=== PATIENT | female | born 1995 | race American Indian/Alaskan Native ===

== ENCOUNTER 2017-04-27 09:58 | Emergency (ER) | payer SELFPAY ==
[2017-04-27 10:48] VITALS: BP 106/58
--- NOTE | 2017-04-27 11:43 | Emergency Department Report ---
ED Anxiety HPI - General Chief Complaint: Anxiety Stated Complaint: ANXIETY Time Seen by Provider: 04/27/17 11:37 Source: patient Mode of arrival: Ambulatory - History of Present Illness Initial Comments: 22-year-old -[place] female who works at the [employer] comes in today presenting with complaint of anxiety. Patient reports that she had a panic attack this morning while at work. She reports that she had shortness of breathing palpitations she couldn't calm herself down. She denies any homicidal or suicidal ideation. She currently takes no medications has no known drug allergies and has no past medical history she has no primary care provider. She reports this has happened to her one other time. Patient reports at this time she is not shortness of breath she does not have any palpitations. MD Complaint: anxiety, heart racing, shortness of breath - Related Data Home Medications: Previous Rx's Medication Instructions Recorded Last Taken Type Docusate Sodium [Colace] 100 mg PO BID #60 capsule 12/06/15 Unknown Rx Hydrocortisone [Anucort-HC SUPPOS] 25 mg RC BID #60 supp.rect 12/06/15 Unknown Rx PE/Shk Lvr/Mo/Pet,Wh [Preparation 28 gm [place] BID #1 tube 12/06/15 Unknown Rx H] Ibuprofen [Motrin 800 MG tab] 800 mg PO Q8HR PRN #30 tablet 04/09/16 Unknown Rx oxyCODONE /ACETAMINOPHEN [Percocet 1 tab PO Q4HR #30 tab 04/09/16 Unknown Rx 5/325] Docusate Sodium [Colace] 100 mg PO BID PRN #30 capsule 04/11/16 Unknown Rx Ferrous Sulfate [Feosol 325 MG tab] 325 mg PO TID #90 tablet 04/11/16 Unknown Rx Allergies/Adverse Reactions: Allergies Allergy/AdvReac Type Severity Reaction Status Date / Time No Known Allergies Allergy Verified 04/27/17 10:43 ED Review of Systems ROS: Stated complaint: ANXIETY Other details as noted in HPI Constitutional: denies: chills, fever Eyes: denies: eye pain, eye discharge, vision change ENT: denies: ear pain, throat pain Respiratory: shortness of breath Cardiovascular: palpitations Endocrine: no symptoms reported Gastrointestinal: denies: abdominal pain, nausea, diarrhea Genitourinary: denies: urgency, dysuria, discharge Musculoskeletal: denies: back pain, joint swelling, arthralgia Skin: denies: rash, lesions Neurological: denies: headache, weakness, paresthesias Psychiatric: anxiety. denies: auditory hallucinations, visual hallucinations, homicidal thoughts, suicidal thoughts Hematological/Lymphatic: denies: easy bleeding, easy bruising ED Past Medical Hx - Past Medical History Hx Hypertension: No Hx Congestive Heart Failure: No Hx Diabetes: No Hx Deep Vein Thrombosis: No Hx Renal Disease: No Hx Sickle Cell Disease: No Hx Seizures: No Hx Asthma: No Hx COPD: No Hx HIV: No - Surgical History Past Surgical History?: No - Social History Smoking Status: Never Smoker Substance Use Type: Alcohol - Medications Home Medications: Home Medications Medication Instructions Recorded Confirmed Last Taken Type Docusate Sodium [Colace] 100 mg PO BID #60 capsule 12/06/15 04/11/16 Unknown Rx Hydrocortisone [Anucort-HC SUPPOS] 25 mg RC BID #60 supp.rect 12/06/15 Unknown Rx PE/Shk Lvr/Mo/Pet,Wh [Preparation 28 gm [place] BID #1 tube 12/06/15 04/11/16 Unknown Rx H] Ibuprofen [Motrin 800 MG tab] 800 mg PO Q8HR PRN #30 tablet 04/09/16 Unknown Rx oxyCODONE /ACETAMINOPHEN [Percocet 1 tab PO Q4HR #30 tab 04/09/16 Unknown Rx 5/325] Docusate Sodium [Colace] 100 mg PO BID PRN #30 capsule 04/11/16 Unknown Rx Ferrous Sulfate [Feosol 325 MG tab] 325 mg PO TID #90 tablet 04/11/16 Unknown Rx ED Physical Exam - General Limitations: No Limitations, Other (patient is calm no acute distress sitting in the chair sleeping) General appearance: alert, in no apparent distress - Head Head exam: Present: atraumatic, normocephalic - Eye Eye exam: Present: normal appearance - ENT ENT exam: Present: mucous membranes moist - Neck Neck exam: Present: normal inspection - Respiratory Respiratory exam: Present: normal lung sounds bilaterally. Absent: respiratory distress - Cardiovascular Cardiovascular Exam: Present: regular rate, normal rhythm. Absent: systolic murmur, diastolic murmur, rubs, gallop - GI/Abdominal GI/Abdominal exam: Present: soft, normal bowel sounds - Extremities Exam Extremities exam: Present: normal inspection - Back Exam Back exam: Present: normal inspection - Neurological Exam Neurological exam: Present: alert, oriented X3 - Psychiatric Psychiatric exam: Present: normal affect, normal mood. Absent: depressed, agitated, anxious, suicidal ideation - Skin Skin exam: Present: warm, dry, intact, normal color. Absent: rash ED Course Vital Signs 04/27/17 10:43 Temperature 98.3 F Pulse Rate 74 Respiratory 16 Rate Blood Pressure 106/58 O2 Sat by Pulse 100 Oximetry ED Medical Decision Making - Medical Decision Making Patient has been evaluated by this provider fast track. Patient is not suicidal or homicidal. Patient is not anxious at this time. Patient heart rate is within normal limits at approximately 74 beats a minute. Patient has no signs of shortness of breath or dyspnea on exertion. I will refer patient to psychiatry outpatient as well as a primary care provider for further evaluation and workup. Patient verbalized understanding. Critical care attestation.: If time is entered above; I have spent that time in minutes in the direct care of this critically ill patient, excluding procedure time. ED Disposition Clinical Impression: Anxiety Disposition: DC-01 TO HOME OR SELFCARE Is pt being admited?: No Does the pt Need Aspirin: No Condition: Stable Instructions: Anxiety (ED) Additional Instructions: Please follow up with a psychiatrist for further evaluation and management. Referrals: PRIMARY CARE, [Primary Care Provider] - 3-5 Days CECILE HOGAN MD [Staff Physician] - 3-5 Days ALEM MACHADO MD [Referring] - 3-5 Days RAMILA LUNDBERG FNP [Advanced Practice Nurse] - 3-5 Days JOSE J ROMERO MD [Staff Physician] - 3-5 Days YINKA CHICAS MD [Referring] - 3-5 Days Forms: Work/School Release Form(ED)
== END 2017-04-27 11:47 | disposition home or self-care (01) ==
LOC: ED 09:58
DX: F41.9 Anxiety disorder, unspecified (principal)
CPT/HCPCS: 99282

== ENCOUNTER 2018-03-23 18:24 | Emergency (ER) | payer SELFPAY ==
[2018-03-23 18:33] VITALS: BP 102/44
--- NOTE | 2018-03-23 21:01 | Emergency Department Report ---
ED General Adult HPI - General Chief complaint: Nausea/Vomiting/Diarrhea Stated complaint: CANT KEEP FOOD DOWN Time Seen by Provider: 03/23/18 20:56 Source: patient Mode of arrival: Ambulatory Limitations: No Limitations - History of Present Illness Initial comments: 23-year-old comes in complaining of nausea and vomiting with constipation since 118. Patient reports that last emesis about 1500. Her last BM may have been Wednesday. She complains of intermittent abdominal pain but no abdominal pain at this moment. Patient has no nausea at this moment. Patient does admit to smoking weed last used on Wednesday. She's been able to drink. She complains of epigastric pain worse with eating tomatoes or pizza better with fresh air. Patient denies any urinary symptoms she reports her last menstrual period was 5 months ago she reports irregular menses. Patient is 1 para 1. Patient sometimes reports she has reflux with eating the tomato sauce pizza. Patient has any fever or chills at this time. She denies any nausea at this time. Patient reports past medical history anxiety. Currently takes no medications on a daily basis and has no known drug allergies. -: days(s) (5 days) Location: abdomen (epigastric intermittent) Quality: aching Consistency: intermittent Improves with: other (fresh air) Worsens with: eating (pizza and tomato sauce) Associated Symptoms: nausea/vomiting. denies: chest pain, fever/chills, loss of appetite Treatments Prior to Arrival: none - Related Data Previous Rx's Medication Instructions Recorded Last Taken Type Docusate Sodium [Colace] 100 mg PO BID #60 capsule 12/06/15 Unknown Rx Hydrocortisone [Anucort-HC SUPPOS] 25 mg RC BID #60 supp.rect 12/06/15 Unknown Rx PE/Shk Lvr/Mo/Pet,Wh [Preparation 28 gm [place] BID #1 tube 12/06/15 Unknown Rx H] Ibuprofen [Motrin 800 MG tab] 800 mg PO Q8HR PRN #30 tablet 04/09/16 Unknown Rx oxyCODONE /ACETAMINOPHEN [Percocet 1 tab PO Q4HR #30 tab 04/09/16 Unknown Rx 5/325] Docusate Sodium [Colace] 100 mg PO BID PRN #30 capsule 04/11/16 Unknown Rx Ferrous Sulfate [Feosol 325 MG tab] 325 mg PO TID #90 tablet 04/11/16 Unknown Rx Vits96/Iron Fum/Folic 1 each PO QDAY #90 tablet 03/24/18 Unknown Rx [ Tablet] Allergies Allergy/AdvReac Type Severity Reaction Status Date / Time No Known Allergies Allergy Verified 03/23/18 18:31 ED Review of Systems ROS: Stated complaint: CANT KEEP FOOD DOWN Other details as noted in HPI Comment: All other systems reviewed and negative Constitutional: denies: chills, fever Gastrointestinal: abdominal pain, nausea Genitourinary: denies: urgency, dysuria, discharge ED Past Medical Hx - Past Medical History Previous Medical History?: No Hx Hypertension: No Hx Congestive Heart Failure: No Hx Diabetes: No Hx Deep Vein Thrombosis: No Hx Renal Disease: No Hx Sickle Cell Disease: No Hx Seizures: No Hx Asthma: No Hx COPD: No Hx HIV: No - Surgical History Past Surgical History?: No - Social History Smoking Status: Current Every Day Smoker Substance Use Type: None - Medications Home Medications: Home Medications Medication Instructions Recorded Confirmed Last Taken Type Docusate Sodium [Colace] 100 mg PO BID #60 capsule 12/06/15 04/11/16 Unknown Rx Hydrocortisone [Anucort-HC SUPPOS] 25 mg RC BID #60 supp.rect 12/06/15 Unknown Rx PE/Shk Lvr/Mo/Pet,Wh [Preparation 28 gm [place] BID #1 tube 12/06/15 04/11/16 Unknown Rx H] Ibuprofen [Motrin 800 MG tab] 800 mg PO Q8HR PRN #30 tablet 04/09/16 Unknown Rx oxyCODONE /ACETAMINOPHEN [Percocet 1 tab PO Q4HR #30 tab 04/09/16 Unknown Rx 5/325] Docusate Sodium [Colace] 100 mg PO BID PRN #30 capsule 04/11/16 Unknown Rx Ferrous Sulfate [Feosol 325 MG tab] 325 mg PO TID #90 tablet 04/11/16 Unknown Rx Vits96/Iron Fum/Folic 1 each PO QDAY #90 tablet 03/24/18 Unknown Rx [ Tablet] ED Physical Exam - General Limitations: No Limitations General appearance: alert, in no apparent distress - Head Head exam: Present: atraumatic, normocephalic - Eye Eye exam: Present: normal appearance - ENT ENT exam: Present: mucous membranes moist, TM's normal bilaterally - Neck Neck exam: Present: normal inspection, full ROM - Respiratory Respiratory exam: Present: normal lung sounds bilaterally. Absent: respiratory distress - Cardiovascular Cardiovascular Exam: Present: regular rate, normal rhythm. Absent: systolic murmur, diastolic murmur, rubs, gallop - GI/Abdominal GI/Abdominal exam: Present: soft, normal bowel sounds. Absent: distended, tenderness, guarding, rebound - Extremities Exam Extremities exam: Present: normal inspection, full ROM - Back Exam Back exam: Present: normal inspection - Neurological Exam Neurological exam: Present: alert, oriented X3 - Psychiatric Psychiatric exam: Present: normal affect, normal mood - Skin Skin exam: Present: warm, dry, intact, normal color. Absent: rash ED Course Vital Signs 03/23/18 18:31 Temperature 98.4 F Pulse Rate 76 Respiratory 18 Rate Blood Pressure 102/44 O2 Sat by Pulse 98 Oximetry ED Medical Decision Making - Radiology Data Radiology results: report reviewed FINAL REPORT PROCEDURE: US OB transvaginal TECHNIQUE: Real-time transvaginal sonography of the uterus, placenta, amniotic fluid, adnexa, and fetus was performed with image documentation. Measurements were obtained to determine age/size. M-mode Doppler was used to document heartbeat. HISTORY: abd pain with +hcg urine COMPARISON: No prior studies are available for comparison. FINDINGS: CRL: 6.4 mm, which corresponds to a gestational age of: 6 weeks, 3 days. Yolk Sac: Normal. Embryonic Cardiac Activity: 120 beats per minute Gestational Sac: Normal. Amniotic fluid: Normal. Cervix: Normal. Right Ovary: Normal. Left Ovary: There is a complex cyst measuring 17 millimeters. Estimated delivery date: 11/14/2018 Uterus and adnexa: Normal. IMPRESSION: Single live intrauterine gestation at approximately 6 weeks and 3 days. EDC by US 11/14/2018 Transcribed By: CO Dictated By: BALTAZAR FARR MD Electronically Authenticated By: BALTAZAR FARR MD Signed Date/Time: 03/24/18310 DD/ 3 TD/TT: 03/24/18313 - Medical Decision Making Patient has been evaluated by this provider in fast track. Waiting for urinalysis and urine test to be sent off. Patient currently has no abdominal pain no nausea no vomiting. Did discuss the patient that marijuana use can cause nausea vomiting abdominal pains. Critical care attestation.: If time is entered above; I have spent that time in minutes in the direct care of this critically ill patient, excluding procedure time. ED Disposition Clinical Impression: Qualifiers: Weeks of gestation: less than 8 weeks Qualified Code(s): Z3A.01 - Less than 8 weeks gestation of Disposition: DC- TO HOME OR SELFCARE Is pt being admited?: No Does the pt Need Aspirin: No Condition: Stable Instructions: Morning Sickness (ED), (ED) Additional Instructions: Please take vitamins every day. Please follow-up with an OB I have listed several below for your convenience. Prescriptions: Vits96/Iron Fum/Folic [ Tablet] 1 each PO QDAY #90 tablet Referrals: MELVI BELLE MD [Primary Care Provider] - 3-5 Days [facility] [Provider Group] - 3-5 Days [facility] [Provider Group] - 3-5 Days [facility] [Provider Group] - 3-5 Days
[2018-03-23 21:29] LABS: HCG Qualitative,Urine Positive (Negative)
[2018-03-23 21:33] LABS: Bacteria,Urine 1+ /HPF (Negative); Bilirubin,Urine NEG (Negative); Blood,Urine SM (Negative); Color,Urine Yellow (Yellow); Mucus,Urine FEW /HPF; Protein,Urine <15 mg/dL mg/dL (Negative)
--- NOTE | 2018-03-24 03:11 | Ultrasound Report ---
FINAL REPORT PROCEDURE: US OB transvaginal TECHNIQUE: Real-time transvaginal sonography of the uterus, placenta, amniotic fluid, adnexa, and fe tus was performed with image documentation. Measurements were obtained to determine age/size. M -mode Doppler was used to document heartbeat. HISTORY: abd pain with +hcg urine COMPARISON: No prior studies are available for comparison. FINDINGS: CRL: 6.4 mm, which corresponds to a gestational age of: 6 weeks, 3 days. Yolk Sac: Normal. Embryonic Cardiac Activity: 120 beats per minute Gestational Sac: Normal. Amniotic fluid: Normal. Cervix: Normal. Right Ovary: Normal. Left Ovary: There is a complex cyst measuring 17 millimeters. Estimated delivery date: 11/14/2018 Uterus and adnexa: Normal. IMPRESSION: Single live intrauterine gestation at approximately 6 weeks and 3 days. EDC by US 11/14/2018
--- NOTE | 2018-03-24 03:11 | Ultrasound Report ---
FINAL REPORT PROCEDURE: US OB <= 14 WEEKS FETUS TECHNIQUE: Real-time transabdominal sonography of the uterus, placenta, amniotic fluid, adnexa, and fetus was performed with image documentation. Measurements were obtained to determine age/size. M-mode Doppler was used to document heartbeat. CPT 68147 HISTORY: abd pain with +hcg urine COMPARISON: No prior studies are available for comparison. FINDINGS: CRL: 6.4 mm, which corresponds to a gestational age of: 6 weeks, 3 days. Yolk Sac: Normal. Embryonic Cardiac Activity: 120 beats per minute Gestational Sac: Normal. Amniotic fluid: Normal. Cervix: Normal. Right Ovary: Normal. Left Ovary: There is a complex cyst measuring 17 millimeters. Estimated delivery date: 11/14/2018 Uterus and adnexa: Normal. IMPRESSION: Single live intrauterine gestation at approximately 6 weeks and 3 days. EDC by US 11/14/2018
== END 2018-03-24 03:33 | disposition home or self-care (01) ==
LOC: ED 18:24
DX: O21.8 Other vomiting complicating pregnancy (principal); O26.891 Other specified pregnancy related conditions, first trimester; R10.13 Epigastric pain; O99.331 Smoking (tobacco) complicating pregnancy, first trimester; F17.200 Nicotine dependence, unspecified, uncomplicated; Z3A.01 Less than 8 weeks gestation of pregnancy
CPT/HCPCS: 36415; 76801; 76817; 81001; 81025; 84702; 84703

== ENCOUNTER 2018-06-09 19:51 | Emergency (ER) | payer MEDICAID, OTHER ==
[2018-06-09 20:01] VITALS: BP 123/82
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
[2018-06-09] MEDS ORDERED: TYLENOL PO ONE (21:22)
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
== END 2018-06-09 23:38 | disposition home or self-care (01) ==
LOC: ED 19:51
DX: O9A.212 Injury, poisoning and certain other consequences of external causes complicating pregnancy, second trimester (principal); S69.92XA Unspecified injury of left wrist, hand and finger(s), initial encounter; O99.332 Smoking (tobacco) complicating pregnancy, second trimester; F17.200 Nicotine dependence, unspecified, uncomplicated; Z3A.18 18 weeks gestation of pregnancy; Y04.0XXA Assault by unarmed brawl or fight, initial encounter; Y93.89 Activity, other specified; Y92.89 Other specified places as the place of occurrence of the external cause; Y99.8 Other external cause status

== ENCOUNTER 2018-09-24 23:21 | Outpatient (CLI) | payer MEDICAID ==
[2018-09-24] MEDS ORDERED: LACTATED RINGERS 500 ML IV ONE (23:34)
[2018-09-24] MEDS ORDERED: LACTATED RINGERS 1,000 ML ONE (23:49)
[2018-09-25 00:29] VITALS: BP 104/65
[2018-09-25] MEDS ORDERED: ZOFRAN IV ONE (00:54)
[2018-09-25 02:15] LABS: Bacteria,Urine 1+ /HPF (Negative); Bilirubin,Urine NEG (Negative); Blood,Urine NEG (Negative); Color,Urine Amber (Yellow); Mucus,Urine 3+ /HPF
[2018-09-25] MEDS ORDERED: BRETHINE ONE (03:26)
[2018-09-25] MEDS ORDERED: BRETHINE SUB-Q ONE (03:30)
== END 2018-09-25 04:41 | disposition home or self-care (01) ==
LOC: TRG 23:21
PROVIDERS: ATTEND Obstetrics & Gynecology
DX: O21.2 Late vomiting of pregnancy (principal); O26.893 Other specified pregnancy related conditions, third trimester; R19.7 Diarrhea, unspecified; O47.03 False labor before 37 completed weeks of gestation, third trimester; O99.343 Other mental disorders complicating pregnancy, third trimester; F41.8 Other specified anxiety disorders; Z87.891 Personal history of nicotine dependence; Z3A.32 32 weeks gestation of pregnancy
CPT/HCPCS: 59025; 81001; 96365; 96372; J2405; J3105; J7120; 96360; 96361; 96374; 96376

== ENCOUNTER 2018-10-16 19:37 | Outpatient (CLI) | payer MEDICAID ==
[2018-10-16] MEDS ORDERED: LACTATED RINGERS 1,000 ML IV ONE (23:27)
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
== END 2018-10-17 01:30 | disposition home or self-care (01) ==
LOC: TRG 19:37 → LD 19:38 → TRG 10-17 01:30
PROVIDERS: ATTEND Obstetrics & Gynecology
DX: O36.8130 Decreased fetal movements, third trimester, not applicable or unspecified (principal); O47.03 False labor before 37 completed weeks of gestation, third trimester; O99.343 Other mental disorders complicating pregnancy, third trimester; F41.8 Other specified anxiety disorders; O99.323 Drug use complicating pregnancy, third trimester; F12.90 Cannabis use, unspecified, uncomplicated; Z87.891 Personal history of nicotine dependence; Z3A.36 36 weeks gestation of pregnancy
CPT/HCPCS: 76815; 96360; J7120

== ENCOUNTER 2018-10-25 21:54 | Outpatient (CLI) | payer MEDICAID ==
[2018-10-25] MEDS ORDERED: LACTATED RINGERS 1,000 ML IV ONE (22:40)
[2018-10-25 22:59] LABS: Bilirubin,Urine NEG (Negative); Blood,Urine NEG (Negative); Color,Urine Yellow (Yellow); Mucus,Urine 1+ /HPF
[2018-10-25 23:04] LABS: Amphetamine Screen,Urine PRESUMPTIVE NEGATIVE; Benzodiazepines Screen,Urine PRESUMPTIVE NEGATIVE; Cocaine Screen,Urine PRESUMPTIVE NEGATIVE; Methadone Screen,Urine PRESUMPTIVE NEGATIVE; Opiate Screen,Urine PRESUMPTIVE NEGATIVE
[2018-10-25] MEDS ORDERED: ZOFRAN IV ONE (23:15)
[2018-10-25 23:18] LABS: Cannabinoid Screen,Urine PRESUMPTIVE POSITIVE
[2018-10-25 23:36] VITALS: BP 106/60
== END 2018-10-25 23:40 | disposition home or self-care (01) ==
LOC: TRG 21:54
PROVIDERS: ATTEND Obstetrics & Gynecology
DX: O21.2 Late vomiting of pregnancy (principal); O26.893 Other specified pregnancy related conditions, third trimester; R19.7 Diarrhea, unspecified; R25.2 Cramp and spasm; O99.613 Diseases of the digestive system complicating pregnancy, third trimester; K59.00 Constipation, unspecified; O99.343 Other mental disorders complicating pregnancy, third trimester; F41.8 Other specified anxiety disorders; O99.323 Drug use complicating pregnancy, third trimester; F12.90 Cannabis use, unspecified, uncomplicated; Z3A.37 37 weeks gestation of pregnancy
CPT/HCPCS: 59025; 80307; 81001; 96361; 96374; J2405; J7120; 96360

== ENCOUNTER 2018-11-06 16:06 | Outpatient (CLI) | payer MEDICAID ==
[2018-11-06 17:34] VITALS: BP 99/58
== END 2018-11-06 17:58 | disposition home or self-care (01) ==
LOC: TRG 16:06
PROVIDERS: ATTEND Obstetrics & Gynecology
DX: O26.893 Other specified pregnancy related conditions, third trimester (principal); R42 Dizziness and giddiness; R06.02 Shortness of breath; R53.1 Weakness; O99.323 Drug use complicating pregnancy, third trimester; F12.10 Cannabis abuse, uncomplicated; Z3A.39 39 weeks gestation of pregnancy; Z87.891 Personal history of nicotine dependence

== ENCOUNTER 2018-11-09 11:30 | Inpatient (IN) | payer MEDICAID ==
--- NOTE | 2018-11-07 11:12 | History and Physical Report ---
History of Present Illness Date of examination: 11/04/18 Date of admission: 11/09/18 Chief complaint: here for repeat c/s. History of present illness: Pt presents for repeat c/s. All risk, benefits, and alternatives were d/w pt and questions were addressed and answered. Consents were signed and placed on the chart. 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 of genital herpes: yes Partner hx. of genital herpes: no Rash, Viral, or Febrile illness since last LMP? no Varicella/Chicken Pox Status: Immunized Infection History Comments: possible HSV? Genetic History Congenital Heart Defect: Mom: no Dad: no Omari Disease: Mom: no Dad: no Thalassemia Mom: no Dad: no Neural Tube Defect Mom: no Dad: no Down's Syndrome Mom: no Dad: no Ayo-Sachs Mom: no Dad: no Sickle Cell Disease/Trait Mom: no Dad: no Hemophilia Mom: no Dad: no Muscular Dystrophy Mom: no Dad: no Cystic Fibrosis Mom: no Dad: no [place] Chorea Mom: no Dad: no Mental Retardation Mom: no Dad: no Fragile X Mom: no Dad: no Other Genetic/Chromosomal Disorder Mom: no Dad: no Child w/other defect Mom: no Dad: no Enviromental Exposures Xray Exposure: no Medication, drug, or alcohol use since LMP: no Chemical/Other Exposure: no Exposure to Cat Liter: no Hx of Parvovirus (Fifth Disease): no Occupational Exposure to Children: none Active Medications (reviewed today): PERCOCET 5-325 MG ORAL TABLET (OXYCODONE-ACETAMINOPHEN) IBUPROFEN 800 MG ORAL TABLET (IBUPROFEN) 1 po q8h prn pain FERROUS SULFATE 325 (65 Fe) MG ORAL TABLET (FERROUS SULFATE) 1 po qd VITAMINS () Current Allergies (reviewed today): No known allergies Past History Past Medical History: no pertinent history 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 Negative: distention, tenderness, guarding Genitourinary (Female): Positive: other (deferred) Extremities: Positive: normal. Negative: tenderness, edema Deep Tendon Reflex Grade: Normal +2 Results All other labs normal. Assessment and Plan - Patient Problems (1) 39 weeks gestation of Status: Acute (2) Anemia affecting in third trimester Status: Acute (3) Previous delivery affecting , antepartum Status: Acute Plan to address problem: -admit and prepare for c/s -Consents signed and placed on the chart. All risk, benefits and alternatives were d/w pt and questions were addressed and answered.
[2018-11-11] MEDS ORDERED: LACTATED RINGERS 2,000 ML ONE (07:00)
[2018-11-11] MEDS ORDERED: LACTATED RINGERS 1,000 ML ONE (07:11)
[2018-11-11] MEDS ORDERED: BICITRA ONE (07:11)
[2018-11-11] MEDS ORDERED: REGLAN ONE (07:11)
[2018-11-11] MEDS ORDERED: PEPCID IV ONE (07:11)
[2018-11-11] MEDS ORDERED: DILAUDID IV PRN ×2 (07:28)
[2018-11-11] MEDS ORDERED: ZOFRAN IV PRN (07:28)
[2018-11-11] MEDS ORDERED: BENADRYL IV PRN (07:28)
--- NOTE | 2018-11-11 07:32 | Anesthesia Day of Surgery ---
Anesthesia Day of Surgery - Day of Surgery Patient Examined: Yes Patient H&P Reviewed: Yes Patient is NPO: Yes Beta Blockers: No Cardiac Clearance: No Pulmonary Clearance: No Colten's Test: N/A
--- NOTE | 2018-11-11 07:32 | Anesthesia Consultation ---
Anesthesia Consult and Med Hx Date of service: 11/11/18 - Airway Anesthetic Teeth Evaluation: Good ROM Head & Neck: Adequate Mental/Hyoid Distance: Adequate Mallampati Class: Class II Intubation Access Assessment: Probably Good - Pulmonary Exam CTA: Yes - Cardiac Exam Cardiac Exam: RRR - Pre-Operative Health Status ASA Pre-Surgery Classification: ASA2 Proposed Anesthetic Plan: Spinal - Pulmonary Hx Smoking: Yes (Cannabis stop 3month ago) Hx Asthma: No Hx Respiratory Symptoms: No SOB: No COPD: No Home Oxygen Therapy: No Hx Pneumonia: No Hx Sleep Apnea: No - Cardiovascular System Hx Hypertension: No Hx Coronary Artery Disease: No Hx Heart Attack/AMI: No Hx Angina: No Hx Percutaneous Transluminal Coronary Angioplasty (PTCA): No Hx Cardia Arrhythmia: No Hx Pacemaker: No Hx Internal Defibrillator: No Hx Valvular Heart Disease: No Hx Heart Murmur: No Hx Peripheral Vascular Disease: No - Central Nervous System Hx Neuromuscular Disorder: No Hx Seizures: No CVA: No Hx Back Pain: No Hx Psychiatric Problems: No - Gastrointestinal Hx Ulcer: No Hx Gastroesophageal Reflux Disease: No - Endocrine Hx Renal Disease: No Hx End Stage Renal Disease: No Hx Cirrhosis: No Hx Liver Disease: No Hx Insulin Dependent Diabetes: No Hx Non-Insulin Dependent Diabetes: No Hx Thyroid Disease: No Hx Hypothyroidism: No Hx Hyperthyroidism: No - Hematic Hx Anemia: Yes Hx Sickle Cell Disease: No - Other Systems Hx Alcohol Use: No Hx Substance Use: No Hx Cancer: No Hx Obesity: No
[2018-11-11] MEDS ORDERED: PEPCID IV NR (08:00)
[2018-11-11] MEDS ORDERED: SODIUM CHLORIDE FLUSH SYRINGE 10 ML IV NR (08:00)
[2018-11-11] MEDS ORDERED: LACTATED RINGERS 1,000 ML IV SCH (08:00)
[2018-11-11] MEDS ORDERED: ANCEF/STERILE WATER 2 GM/20 ML 2 GM/20 ML SYRINGE IV NR (08:00)
[2018-11-11] MEDS ORDERED: REGLAN IV NR (08:00)
[2018-11-11] MEDS ORDERED: BICITRA PO NR (08:00)
[2018-11-11] MEDS ORDERED: PITOCin/NS 20 UNIT/1000ML DRIP 20 UNITS/1,000 ML BAG IV SCH (08:00)
[2018-11-11 08:18] LABS: Basophils % (Auto) 0.5 % (0.0-1.8); Eosinophils # (Auto) 0.1 K/mm3 (0.0-0.4); Eosinophils % (Auto) 1.5 % (0.0-4.3); Hemoglobin 10.6 gm/dl (10.1-14.3); Lymphocytes # (Auto) 2.6 K/mm3 (1.2-5.4); Lymphocytes % (Auto) 27.5 % (13.4-35.0); Mean Corpuscular HGB Conc 34 % (30-34); Mean Corpuscular Volume 87 fl (79-97); Monocytes # (Auto) 0.8 K/mm3 (0.0-0.8); Monocytes % (Auto) 8.8 % (0.0-7.3); Platelet Count 266 K/mm3 (140-440); Red Blood Count 3.56 M/mm3 (3.65-5.03); Red Cell Distribution Width 14.3 % (13.2-15.2)
[2018-11-11] MEDS ORDERED: DEXMEDETOMIDINE IV ONE (09:24)
[2018-11-11] MEDS ORDERED: TORADOL ONE (09:24)
[2018-11-11] MEDS ORDERED: ZOFRAN ONE (09:24)
[2018-11-11] MEDS ORDERED: NACL 0.9% IR ONE ×2 (09:40)
[2018-11-11] MEDS ORDERED: WATER FOR IRRIG STERILE IR ONE (09:40)
--- NOTE | 2018-11-11 09:51 | Operative Report ---
Operative Report Operative Report: Date of procedure: 11/11/2018 Pre-operative diagnosis: Repeat section 39 weeks gestation Post-operative diagnosis: Same Procedure name(s): Repeat low transverse section via Pfannenstiel skin incision Vacuum assisted delivery Surgeon: Dr. Aparicio Clinical Documentation Specialist: ROXANA, Ms. Michaela Knox Anesthesia: Combined spinal epidural EBL: 800 mL Urine output: 200 mL of clear urine out at end of procedure Fluids: 1 L Findings: Liveborn female weight 6 lbs. 10 oz. Apgars of 8 and 9 at one and 5 minutes Grossly normal fallopian tubes and ovaries bilaterally Indications: She presents for scheduled section. All risks benefits and alternatives were discussed with the patient. Consents were signed and placed on the chart. Procedure: Patient was taking to the operating room. Patient was then prepped and draped in sterile fashion after anesthesia was found to be adequate. A low transverse skin incision was made with the scalpel through previous incisional scar and carried down to the underlying layer of fascia with the Bovie. The fascia was then incised in the midline and this incision was extended bilaterally with the Bovie. The superior aspect of the fascia was grasped with [place] clamps tented upward and dissected off of the anterior rectus muscles with the scalpel. In similar fashion the inferior aspect of the fascia was grasped with [place] clamps tented upward and dissected off of the anterior rectus muscles. The rectus muscles were then bluntly divided in the midline. The peritoneum was identified and entered into sharply. The bladder blade was placed. A lower transverse uterine incision was made with the scalpel and extended bilaterally with the dissection. Artificial rupture of membranes was performed yielding clear amniotic fluid. Kiwi vacuum was applied after appropriate positioning confirming no placement over the anterior fontanelle and with 1 pull the infant's head was then delivered atraumatically. The anterior shoulder and rest of delivered without difficulty. The umbilical cord was clamped x2. The cord was cut. The was then placed in sterile bassinet. The cord blood was collected. The placenta was manually extracted in its entirety. The uterus was exteriorized and cleared of all clots and debris. The uterine incision was closed using 0 Vicryl in a running locking fashion. A second imbricating layer of the same suture was then created. The posterior cul-de-sac was copiously irrigated. The uterus was returned to the abdomen. The gutters were also irrigated. The anterior rectus muscles were reapproximated using 3-0 Vicryl. The anterior rectus fascia was reapproximated using 0 Vicryl in a running fashion. The subcuticular fat was reapproximated using 2-0 Vicryl in a running fashion. The skin was reapproximated with 4-0 Monocryl in a subcuticular stitch. The patient tolerated the procedure well. Sponge lap and needle counts were all correct x3. Patient was taken to the recovery room awake and in stable condition.
--- NOTE | 2018-11-11 10:10 | Post Anesthesia Evaluation ---
- Post Anesthesia Evaluation Patient Participated: Yes Airway Patent: Yes Stable Respiratory Function: Yes Nausea/Vomiting: No Temp > 96.8F: Yes Pain Manageable: Yes Adequeate Hydration: Yes Anesthesia Complications: No Block Receding Appropriately: Yes Patient on Ventilator: No
[2018-11-11] MEDS ORDERED: NARCAN 0.4 MG/1 ML IV PRN (11:30)
[2018-11-11] MEDS ORDERED: TUCKS PAD TP PRN (11:30)
[2018-11-11] MEDS ORDERED: LANSINOH TP PRN (11:30)
[2018-11-11] MEDS ORDERED: ANCEF/STERILE WATER 2 GM/20 ML 2 GM/20 ML SYRINGE IV ONE (11:38)
[2018-11-11] MEDS: TORADOL IV PRN ×2 (13:44→21:43)
[2018-11-11] MEDS: ANCEF/NS 1 GM/50 ML 1 GM/50 ML BAG IV SCH (17:25)
[2018-11-11] MEDS: NORCO 5/325 PO PRN (20:33)
[2018-11-11] MEDS ORDERED: D5LR 1,000 ML IV SCH (21:00)
[2018-11-11 21:55] LABS: Hematocrit 26.9 % (30.3-42.9); Hemoglobin 9.1 gm/dl (10.1-14.3)
[2018-11-12] MEDS: ANCEF/NS 1 GM/50 ML 1 GM/50 ML BAG IV SCH (01:04)
[2018-11-12] MEDS: NORCO 5/325 PO PRN ×2 (04:46→15:31)
[2018-11-12] MEDS: TORADOL IV PRN (04:47)
[2018-11-12] MEDS ORDERED: BOOSTRIX IM ONE (06:00)
--- NOTE | 2018-11-12 10:21 | Progress Note ---
Assessment and Plan day 1 post repeat c/s, with good latch. no complaints. VSSAF, H&H 9.1/26.9. incision D&I. - Patient Problems (1) delivery delivered Current Visit: No Status: Acute Plan to address problem: Continue postop pathway Advance activity as tolerated possible d/c home tomorrow if patient desires (2) Anemia due to acute blood loss Current Visit: No Status: Acute Plan to address problem: continue PNV and healthy diet monitor for s/s anemia Subjective - Subjective Date of service: 11/12/18 Principal diagnosis: Postop day #1 s/p repeat c/s Patient reports: appetite normal, voiding normally, pain well controlled, flatus, no dizzy ambulation, no nauseated [place]: doing well, nursing well Objective - Vital Signs Latest vital signs: Vital Signs Temp Pulse Resp BP BP Pulse Ox 11/12/18 08:36 98.1 F 18 96/64 11/12/18 08:00 98.1 F 72 18 130/83 11/12/18 05:46 18 11/12/18 05:17 18 11/12/18 05:13 98.3 F 60 22 123/77 100 11/12/18 04:47 18 11/12/18 04:46 18 11/12/18 01:30 98.3 F 58 L 22 99 11/12/18 00:18 96/63 11/11/18 22:13 18 11/11/18 21:43 18 11/11/18 21:33 18 11/11/18 21:00 98.9 F 22 103/68 11/11/18 20:33 18 11/11/18 17:01 97.9 F 59 L 18 97/58 100 11/11/18 11:30 97.5 F L 57 L 18 97/61 98 11/11/18 11:00 60 12 90/50 100 11/11/18 10:55 58 L 12 90/54 100 11/11/18 10:40 60 12 86/44 98 11/11/18 10:25 64 12 87/46 98 Intake and Output 11/11/18 11/12/18 11/12/18 23:59 07:59 15:59 Intake Total 50 Output Total 400 800 Balance -350 -800 Intake: IV 50 ANCEF/NS 1 GM/50 ML 1 gm 50 In 50 ml @ 100 mls/hr IV Q8H [facility] Rx#:[id number] Output: Urine 400 800 Indwelling Catheter 400 800 Other: Total, Output Amount 400 800 # Voids Indwelling Catheter 900 - Exam Breasts: Present: normal, Cardiovascular: Present: Regular rate Lungs: Present: Clear to auscultation, Normal air movement Abdomen: Present: normal appearance, soft. Absent: distention, tenderness Vulva: both: normal Uterus: Present: normal, firm, fundal height at umbilicus Extremities: Present: normal Deep Tendon Reflex Grade: Normal +2 Incision: Present: normal, dry, intact - Labs Labs: Abnormal lab results 11/11/18 Range/Units 21:36 Hgb 9.1 L (10.1-14.3) gm/dl Hct 26.9 L (30.3-42.9) %
[2018-11-12] MEDS: FEOSOL PO SCH (12:42)
[2018-11-12] MEDS: IBUPROFEN PO PRN ×2 (12:43→20:42)
[2018-11-12] MEDS ORDERED: MILK OF MAGNESIA PO PRN (20:38)
[2018-11-13] MEDS ORDERED: BOOSTRIX IM ONE (06:00)
[2018-11-13] MEDS: NORCO 5/325 PO PRN ×3 (06:05→21:04)
[2018-11-13] MEDS: IBUPROFEN PO PRN ×3 (06:06→18:18)
[2018-11-13] MEDS: FEOSOL PO SCH (10:59)
--- NOTE | 2018-11-13 11:35 | Progress Note ---
Assessment and Plan post op day # 2 s/p repeat c/s, no complaints. requests d/c home tomorrow. VSSAF, no s/s anemia, baby with good latch. - Patient Problems (1) delivery delivered Current Visit: No Status: Acute Plan to address problem: Continue postop pathway Advance activity as tolerated d/c home tomorrow (2) Anemia due to acute blood loss Current Visit: No Status: Acute Plan to address problem: continue PNV and healthy diet monitor for s/s anemia Subjective - Subjective Date of service: 11/13/18 Principal diagnosis: Postop day #2 s/p repeat c/s Patient reports: appetite normal, voiding normally, pain well controlled, flatus, ambulating normally, no dizzy ambulation, no nauseated : doing well, nursing well Objective - Vital Signs Latest vital signs: Vital Signs Temp Pulse Resp BP Pulse Ox 11/13/18 08:09 98.7 F 18 93/42 11/13/18 07:06 18 11/13/18 07:05 18 11/13/18 06:06 18 11/13/18 06:05 18 11/13/18 01:09 98.2 F 66 18 99/62 99 11/12/18 21:42 18 11/12/18 20:42 18 11/12/18 16:54 97.8 F 65 18 105/70 100 Intake and Output 11/12/18 11/13/18 11/13/18 23:59 07:59 15:59 Intake Total 540 480 Balance 540 480 Intake: Oral 380 Intake, Free Water 160 480 Other: Total, Intake Amount 380 # Voids Indwelling Catheter 2 Void 4 # Bowel Movements 0 - Exam Breasts: Present: normal, Cardiovascular: Present: Regular rate Lungs: Present: Clear to auscultation, Normal air movement Abdomen: Present: normal appearance, soft, normal bowel sounds. Absent: distention, tenderness Vulva: both: normal Uterus: Present: normal, firm, fundal height at umbilicus Extremities: Present: normal Incision: Present: normal, dry, intact
[2018-11-14] MEDS: IBUPROFEN PO PRN (05:26)
--- NOTE | 2018-11-14 08:33 | Discharge Summary ---
Providers - Providers Date of Admission: 11/11/18 06:48 Date of discharge: 11/14/18 Attending physician: BARBARA GRIFFIN Primary care physician: BARBARA GRIFFIN Hospitalization Reason for admission: scheduled repeat c/s Condition: Good Pertinent studies: post delivery H&H 9.1/26.9, acute anemia from blood loss at delivery, pt is asymptomatic Procedures: repeat c/s Hospital course: uncomplicated Disposition: DC-01 TO HOME OR SELFCARE Core Measure Documentation - Palliative Care Palliative Care/ Comfort Measures: Not Applicable - Core Measures Any of the following diagnoses?: none Exam - Constitutional Vitals: Temp Pulse Resp BP Pulse Ox 98.2 F 59 L 16 107/65 100 11/14/18 00:37 11/14/18 00:37 11/14/18 00:37 11/14/18 00:37 11/14/18 00:37 General appearance: Present: no acute distress, well-nourished - EENT Eyes: Present: PERRL ENT: hearing intact, clear oral mucosa - Neck Neck: Present: supple, normal ROM - Respiratory Respiratory effort: normal Respiratory: bilateral: CTA - Cardiovascular Heart Sounds: Present: S1 & S2. Absent: rub, click - Extremities Extremities: pulses symmetrical, No edema Peripheral Pulses: within normal limits - Abdominal General gastrointestinal: Present: soft, non-tender, non-distended, normal bowel sounds Female genitourinary: Present: normal - Integumentary Integumentary: Present: clear, warm, dry - Musculoskeletal Musculoskeletal: gait normal, strength equal bilaterally - Psychiatric Psychiatric: appropriate mood/affect, intact judgment & insight - Neurologic Neurologic: CNII-XII intact, moves all extremities - Additional findings Additional findings: FF, ML, U/2. VB is small, patient denies any heavy bleeding or clots. She denies any heavy bleeding or clots. Incision is well-approximated, healing well, no bleeding or drainage noted. no s/s infection. dwp good hygiene/care for incision care. pt reports pain is well controlled with medicaionts. DWP post delivery H&H, she denies any dizziness or feeling faint with ambulation or position changes. VSSAF. Pt reports breast feeding is going well, she denies any breast complaints. Desires discharge today Plan Activity: advance as tolerated, no driving until cleared by PCP Diet: regular Wound: open to air, keep clean and dry Follow up with: BARBARA GRIFFIN MD [Primary Care Provider] - 7 Days (Congratulations! Please call [phone] to schedule your post-op incision check appointment in 1 week. Call with any questions or concerns. ) Prescriptions: Docusate Sodium [Colace] 100 mg PO BID PRN #60 capsule PRN Reason: Constipation Ferrous Sulfate [Feosol 325 MG tab] 325 mg PO QDAY #60 tablet Ibuprofen [Motrin 800 MG tab] 800 mg PO Q8HR PRN #30 tablet PRN Reason: Pain, Moderate (4-6) oxyCODONE /ACETAMINOPHEN [Percocet 5/325] 1 tab PO Q4HR #30 tab
[2018-11-14] MEDS: NORCO 5/325 PO PRN (09:50)
[2018-11-14] MEDS: FEOSOL PO SCH (09:50)
[2018-11-14 16:39] VITALS: BP 103/64
== END 2018-11-14 19:30 | disposition home or self-care (01) | DRG 765 ==
LOC: APU 11-11 06:48 → OB 11-11 11:31
PROVIDERS: ADMIT Obstetrics & Gynecology; ATTEND Obstetrics & Gynecology
PROC: 10D00Z1 Extraction of Products of Conception, Low, Open Approach (ICD-10-PCS; principal; 2018-11-11)
DX: O34.211 Maternal care for low transverse scar from previous cesarean delivery (principal); D62 Acute posthemorrhagic anemia; O99.02 Anemia complicating childbirth; Z3A.39 39 weeks gestation of pregnancy; Z37.0 Single live birth; Z87.891 Personal history of nicotine dependence
CPT/HCPCS: 36415; 85014; 85018; 85025; 86592; 86850; 86900; 86901; 88307; 90471; 90715; G0378; A6250; J0690; J1885; J2405; J2590; J2765; J3490; J7120; J7121